=== PATIENT | female | born 1990 | race Caucasian/White ===

== ENCOUNTER 2021-11-30 04:02 | Emergency (ER) | payer OTHER ==
[~2021-11-30] VITALS: Ht 160 cm; Wt 63.5 kg
[~2021-11-30 04:02] MED LIST: BACTRIM DS TAB1 EACH PO; BENADRYL25 MG PO; IBUPROFEN 800800 M1 PO; NOHOMEMEDICATIONS; PROVERA10 MG PO; ULTRAM 50MG TAB50 MG PO; VALIUM5 MG PO
[2021-11-30 04:42] LABS: ABSOLUTE BASOPHILS 0.1 thou/uL (0.0-0.2); ABSOLUTE LYMPHOCYTES 1.3 thou/uL (0.8-5.3); ABSOLUTE MONOCYTES 0.5 thou/uL (0.0-1.2); ABSOLUTE NEUTROPHILS 10.5 thou/uL (1.6-8.1); BASOPHILS 0.5 %; EOSINOPHILS 0.2 %; HEMATOCRIT 35.5 % (37.0-47.0); HEMOGLOBIN 11.5 gm/dL (12.0-15.0); LYMPHOCYTES 10.3 %; MCH 28.2 pg (26.0-34.0); MCHC 32.5 g/dL (28.0-37.0); MCV 86.9 fL (80.0-100.0); MPV 7.6 fl. (7.2-11.1); NUCLEATED RBCS 0 /100WBC; PLATELET COUNT* 352 thou/uL (150-400); RBC 4.08 mil/uL (4.20-5.00); RDW-CV 13.5 % (10.5-14.5); WBC 12.3 thou/uL (4.0-11.0)
[2021-11-30 04:50] LABS: CALCIUM 8.7 mg/dL (8.5-10.1); CREATININE 1.1 mg/dL (0.6-1.3); POTASSIUM 4.3 mmol/L (3.5-5.1)
[2021-11-30 07:44] VITALS: BP 100/56
--- NOTE | 2021-11-30 10:19 | EKG ---
[place] [address] ELECTROCARDIOGRAM REPORT Name: LUNAVITALIY Garland Room: [facility]#: [id number] Admission: 11/30/21 Attend Phys: Discharge: 11/30/21 Date of : 89 Date of Service: 11/30/21407 Report #: [id number] THIS REPORT FOR: //name// [facility] ED Test Date: 2021-11-30 Test Time: 04:08:54 Pat Name: VITALIY CARRASCO Department: Room: Gender: F Air [employer]ke [employer]ic: [place] : 1990 Requested By: Keyla Robertson Order Number: [id number] MD: Scott Nicholson Measurements Intervals [place]sprey Rate: 84 P: 53 VA: 151 QRS: 48 QRSD: 92 T: 24 QT: 383 QTc: 453 Interpretive Statements Sinus rhythm Probable left atrial enlargement No previous ECG available for comparison Electronically Signed On 11-30-2021 10:19:20 [employer] by Scott Nicholson [email or web address] <ELECTRONICALLY SIGNED> By: Scott Nicholson MD, [facility] 11/30/21 [id number] Scott Nicholson MD, FAC /EPI
== END 2021-11-30 07:45 | disposition home or self-care (01) ==
LOC: M.ERS 04:02
PROVIDERS: Emergency Medicine
DX: R07.89 Other chest pain (principal); T50.901A Poisoning by unspecified drugs, medicaments and biological substances, accidental (unintentional), initial encounter